=== PATIENT | female | born 2000 | race Two or more races ===

== ENCOUNTER 2018-04-26 02:57 | Emergency (ER) | payer SELFPAY ==
[~2018-04-26] VITALS: Ht 165.1 cm; Wt 120.2 kg
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
--- NOTE | 2018-04-26 04:00 | NUR ---
MD AT BEDSIDE FOR EVALUATION
--- NOTE | 2018-04-26 04:50 | NUR ---
RADIOLOGY AT BEDSIDE FOR XRAY
--- NOTE | 2018-04-26 05:00 | NUR ---
[facility] AT BEDSIDE
[2018-04-26] MEDS ORDERED: IBUPROFEN 600 MG TABLET PO ONE ×2 (06:28→06:30)
--- NOTE | 2018-04-26 06:46 | NUR ---
Patient discharged to home in stable condition. Written and verbal after care instructions given. Patient verbalizes understanding of instruction. Pt ambulatory with a steady gait
[2018-04-26 06:48] VITALS: BP 128/81
== END 2018-04-26 06:49 | disposition home or self-care (01) ==
LOC: ER 03:02
DX: S33.5XXA Sprain of ligaments of lumbar spine, initial encounter (principal); V47.6XXA Car passenger injured in collision with fixed or stationary object in traffic accident, initial encounter; Y93.89 Activity, other specified; Y92.89 Other specified places as the place of occurrence of the external cause; Y99.8 Other external cause status
CPT/HCPCS: 72080-TC